=== PATIENT | male | born 1970 ===

== ENCOUNTER 2020-10-14 18:02 | Emergency (ER) | payer SELFPAY ==
[~2020-10-14] VITALS: Ht 172.7 cm; Wt 65.0 kg
[2020-10-14 18:08] VITALS: BP 94/56
== END 2020-10-14 19:46 | disposition home or self-care (01) ==
LOC: ER 18:02
DX: S68.119A Complete traumatic metacarpophalangeal amputation of unspecified finger, initial encounter (principal); Z48.00 Encounter for change or removal of nonsurgical wound dressing; F15.90 Other stimulant use, unspecified, uncomplicated
CPT/HCPCS: 99281